=== PATIENT | male | born 1965 | race Caucasian/White ===

== ENCOUNTER 2025-04-24 07:05 | Outpatient (CLI) | payer OTHER, SELFPAY ==
--- NOTE | 2025-04-24 07:15 | CRLHL7_ITS ---
For Patients: As a result of the Cures Act, medical imaging exams and procedure reports are released immediately into your electronic medical record. You may view this report before your referring provider. If you have questions, please contact your health care provider. Indication: left groin bulge Technique: Grayscale and color Doppler ultrasound of the left inguinal soft tissues performed. Comparison: None Findings: Left inguinal lymph node measures 7 x 5 x 10 millimeters. Normal central fatty hilum and normal internal vascularity. Impression: Normal left inguinal lymph node. No hernia. Dictated by Sea Camargo MD @ 04/24/2025 9:38:21 AM (Electronically Signed)
== END 2025-04-24 07:06 | disposition home or self-care (01) ==
PROVIDERS: PCP Family Medicine; Visit Provider Family Medicine
DX: R19.09 Other intra-abdominal and pelvic swelling, mass and lump (principal)
CPT/HCPCS: 76705